=== PATIENT | female | born 1995 | race Caucasian/White ===

== ENCOUNTER 2017-11-30 06:39 | Day surgery (SDC) | payer BC ==
[~2017-11-30 06:39] MED LIST: CEFAZOLIN 2 GM/50 ML (PMX) 50 ML IVPB
[2017-11-30] MEDS ORDERED: EPHEDrine SULFATE 50 MG/5 ML SYG IV (08:00)
[2017-11-30] MEDS ORDERED: ALBUTEROL 0.083% (NEB) 2.5 MG/3 ML AMP HHN (08:00)
[2017-11-30] MEDS ORDERED: DIPHENHYDRAMINE 50 MG INJ IV (08:00)
[2017-11-30] MEDS ORDERED: LABETALOL HCL 20MG INJ IV (08:00)
[2017-11-30] MEDS ORDERED: MIDAZOLAM 1 MG/ML 2 ML INJ IV (08:00)
[2017-11-30] MEDS ORDERED: KETOROLAC 30 MG INJ IV (08:00)
[2017-11-30] MEDS ORDERED: hydrALAzine 20 MG INJ IV (08:00)
[2017-11-30] MEDS ORDERED: METOCLOPRAMIDE 10 MG INJ IV (08:00)
[2017-11-30] MEDS ORDERED: FENTAnyl 50 MCG/ML VIAL IV ×2 (08:00)
[2017-11-30] MEDS ORDERED: MEPERIDINE 25 MG INJ IV (08:00)
[2017-11-30] MEDS ORDERED: OXYCODONE/ACETAMINOPHEN (5/325) TAB PO (08:00)
[2017-11-30] MEDS ORDERED: HYDROmorphONE (0.2 MG/ML) 10ML SYG IV ×3 (08:00)
[2017-11-30] MEDS ORDERED: ROCURONIUM 50 MG INJ (08:17)
[2017-11-30] MEDS ORDERED: PROPOFOL 100 ML (08:17)
[2017-11-30] MEDS ORDERED: LIDOCAINE 2% (SDV) 5 ML INJ (08:17)
[2017-11-30] MEDS ORDERED: DEXAMETHASONE 4 MG/ML 1 ML INJ (08:17)
[2017-11-30] MEDS ORDERED: ONDANSETRON 4 MG INJ (08:18)
[2017-11-30] MEDS: BUPIVACAINE 0.5% (SDV) 30 ML INJ (08:24)
[2017-11-30] MEDS: POLYMYXIN/BACITRACIN 1L IRRIG (08:24)
[2017-11-30] MEDS ORDERED: SUGAMMADEX SODIUM 200 MG/2 ML VIAL IV (08:47)
[2017-11-30] MEDS: FENTAnyl 50 MCG/ML VIAL IV ×2 (09:01→09:17)
[2017-11-30] MEDS: ONDANSETRON 4 MG INJ IV (09:03)
[2017-11-30] MEDS: OXYCODONE/ACETAMINOPHEN (5/325) TAB PO (10:10)
== END 2017-11-30 11:05 | disposition home or self-care (01) ==
LOC: SDS 06:39
DX: M21.622 Bunionette of left foot (principal); M25.572 Pain in left ankle and joints of left foot
CPT/HCPCS: 28110; 84703; 88304; 88311